=== PATIENT | male | born 1980 | race Two or more races ===

== ENCOUNTER 2019-01-13 23:49 | Emergency (ER) | payer SELFPAY ==
[~2019-01-13] VITALS: Ht 167.6 cm; Wt 99.8 kg
[2019-01-14 00:01] VITALS: BP 148/93
== END 2019-01-14 02:31 | disposition home or self-care (01) ==
LOC: ER 23:52
DX: K08.89 Other specified disorders of teeth and supporting structures (principal)

== ENCOUNTER 2019-05-04 01:49 | Emergency (ER) | payer SELFPAY ==
[~2019-05-04] VITALS: Ht 167.6 cm; Wt 99.8 kg
[2019-05-04] MEDS ORDERED: LIDOCAINE 2% JELLY 11ml (GLYDO) UR ONE (02:30)
[2019-05-04 02:54] LABS: Urine Bacteria FEW /hpf (None Seen); Urine Blood Negative /uL (Negative); Urine Specific Gravity 1.018 (1.001-1.035); Urine WBC 3 /hpf (0 - 3)
[2019-05-04 04:04] VITALS: BP 154/103
== END 2019-05-04 04:22 | disposition home or self-care (01) ==
LOC: ER 01:51
DX: D29.1 Benign neoplasm of prostate (principal); R33.9 Retention of urine, unspecified
CPT/HCPCS: 81001